=== PATIENT | female | born 1995 | race Caucasian/White ===

== ENCOUNTER 2016-07-18 12:21 | Emergency (ER) | payer OTHER ==
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
[2016-07-18] MEDS ORDERED: HYDROmorphONE/DILAUDID 1 MG/ML SYR IVP ONE (12:35)
[2016-07-18 12:37] VITALS: RESP 16; TEMP 98.1; O2SAT 96
[2016-07-18] MEDS ORDERED: methylPREDNISolone SOD SUCC 125 MG/2 ML VIAL IVP ONE (12:55)
[2016-07-18] MEDS ORDERED: FAMOTIDINE 20 MG/2 ML SDV IVP ONE (13:57)
[2016-07-18 14:20] LABS: COLOR PALE YELLOW; LEUKOCYTE ESTERASE,URINE NEGATIVE (NEGATIVE); NITRITE,URINE NEGATIVE (NEGATIVE)
[2016-07-18 14:33] VITALS: BP 116/65; PULSE 77
== END 2016-07-18 14:33 | disposition home or self-care (01) ==
LOC: EDUNIT#
DX: T14.8 Other injury of unspecified body region (principal); J45.909 Unspecified asthma, uncomplicated; F17.200 Nicotine dependence, unspecified, uncomplicated; V47.5XXA Car driver injured in collision with fixed or stationary object in traffic accident, initial encounter; Y92.410 Unspecified street and highway as the place of occurrence of the external cause; Y93.89 Activity, other specified
CPT/HCPCS: 82947-QW; 96374; J1170; J1200

== ENCOUNTER 2016-09-02 15:02 | Emergency (ER) | payer OTHER ==
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
[2016-09-02 15:51] LABS: % IMMATURE GRANULYOCYTES 0.3 % (0.0-1.1); ABSOLUTE IMMATURE GRANULOCYTES 0.02 10^3/uL (0.00-0.10); ADD DIFF? NO; ADD MORPH? NO; ADD SCAN? NO; ATYPICAL LYMPHOCYTE FLAG 10 (0-99); FRAGMENT RBC FLAG 0 (0-99); HEMATOCRIT 38.8 % (38.0-47.0); HEMOGLOBIN 13.5 g/dL (12.6-16.3); LEFT SHIFT FLG 0 (0-99); LIPEMIA HEMOLYSIS FLAG 90 (0-99); MEAN CELL HEMOGLOBIN 32.5 pg (27.9-34.1); MEAN CELL HEMOGLOBIN CONCENTR. 34.8 g/dL (32.4-36.7); MEAN CELL VOLUME 93.3 fL (81.5-99.8); MEAN PLATELET VOLUME 11.3 fL (8.7-11.7); PLATELET CLUMPS FLAG 0 (0-99); PLATELET COUNT 266 10^3/uL (150-400); RED BLOOD CELL COUNT 4.16 10^6/uL (4.18-5.33); RED CELL DISTRIBUTION WIDTH 12.8 % (11.5-15.2)
[2016-09-02 16:04] LABS: ANION GAP 13 mEq/L (8-16); CALCIUM 9.6 mg/dL (8.5-10.4); CARBON DIOXIDE 22 mEq/l (22-31); CHLORIDE 106 mEq/L (97-110); CREATININE 0.7 mg/dL (0.6-1.0); GLOMERULAR FILTRATION RATE > 60; GLUCOSE 89 mg/dL (70-100); POTASSIUM 4.2 mEq/L (3.5-5.2); SODIUM 141 mEq/L (134-144)
[2016-09-02] MEDS ORDERED: OLANZapine DISINTEGR 5 MG TAB PO ONE (21:40)
[2016-09-02] MEDS ORDERED: TAPENTADOL HCL 50 MG TAB PO ONE ×2 (21:40→22:32)
[2016-09-02] MEDS ORDERED: OLANZapine DISINTEGR 10 MG TAB PO ONE (21:40)
[2016-09-02] MEDS ORDERED: TAPENTADOL 200 MG PO ONE (22:45)
[2016-09-02] MEDS ORDERED: LIDOCAINE 2% JELLY 5 ML TUBE TP ONE (23:52)
[2016-09-02] MEDS ORDERED: NICOTINE 21 MG/24 HR PATCH TD ONE (23:52)
[2016-09-03 00:59] VITALS: BP 118/74; PULSE 71; RESP 14; TEMP 98.4; O2SAT 96
[2016-09-03] MEDS ORDERED: LIDOCAINE 5% 1 EA PATCH TD ONE (02:11)
[2016-09-03] MEDS ORDERED: LIDOCAINE 5% 1 EA PATCH TD SCH (09:00)
[2016-09-03] MEDS ORDERED: PATCH REMOVAL 1 EA PATCH TD SCH (21:00)
== END 2016-09-03 04:55 ==
LOC: EDUNIT#
DX: F28 Other psychotic disorder not due to a substance or known physiological condition (principal)
CPT/HCPCS: 80305

== ENCOUNTER 2017-01-15 23:22 | Inpatient (IN) | payer OTHER ==
--- NOTE | 2017-01-15 23:47 | EDPHY ---
General - History Smoking Status: Current every day smoker Narrative: CHIEF COMPLAINT: Suicidal attempt HISTORY OF PRESENT ILLNESS: Patient arrives by EMS accompanied by [employer]. She admits to cutting her forearms in the tops of both feet approximately 9 or 10:00 p.m.. She did so with intent to kill herself. She has been feeling increasingly depressed and feeling as if she had nothing to live for. She admits to cutting all 4 areas with a box knife. She waited 1 hour and then the bleeding stopped. She then contacted 911 due to failed attempts to do so. She complains of pain in all areas. She does not know when she last had a tetanus shot. She has had previous suicide attempt by walking out in traffic. She has diagnosis of PTSD and bipolar disorder. She does see a psychiatrist. She does take medication. She denies attempt by overdose. She does admit to intake of alcohol. No other associated complaints or modifying factors. PSYCHIATRIC DIAGNOSES: Bipolar disorder, depression, PTSD PRIOR PSYCHIATRIC EVALUATIONS: Multiple M1/DETAINER: At time of admission to the emergency department by [employer] [employer] REVIEW OF SYSTEMS: Ten systems reviewed and are negative unless otherwise noted in the HPI EXAMINATION General Appearance: Alert, no distress, crying but consolable Head: normocephalic, atraumatic Eyes: Pupils equal and round, no conjunctival pallor or injection ENT, Mouth: Mucous membranes moist. Airway patent Neck: Normal inspection, supple, non-tender Respiratory: Lungs are clear to auscultation. No wheezing, rhonchi or crackles Cardiovascular: Regular rate and rhythm. No murmur. Radial pulses are symmetric at 2+. DP pulses are symmetric at 2+. Neurological: GCS 15. A&O, nonfocal, strength is symmetric in all 4 limbs. No wrist drop. No footdrop. Skin: Warm and dry, no rash. Extensive lacerations as noted. Laceration 1.: Dorsum of the left foot. 10 cm oblique. No tendon involvement. No foreign body. Neurovascular intact distally Laceration 2.: Dorsum of the right foot. 10 cm oblique. There is full- thickness laceration of the extensor digitorum. NVI distally Laceration 3.: Volar aspect of the right forearm. 20 cm in length. No exposure of the flexor or extensor apparatus. No foreign body. Laceration 4.: Volar aspect of the left forearm, ulnar side. 18 cm in length. No exposure of the flexor extensor apparatus. No foreign body Laceration 5.: Volar aspect of the left forearm, radial side. 18 cm in length. No exposure of the flexor apparatus. Superficial laceration. Extremities: Tenderness of all 4 extremities. Range of motion is intact with exception of deficit of the right 4th toe extension. Neurovascular intact distal to the lacerations. Psychiatric: Mood and affect normal DIFFERENTIAL DIAGNOSES: Including but not limited to PTSD, bipolar disorder, depression, suicide attempt , suicidal ideation MDM: 11:45 p.m. 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 These have required extensive time for repair due to the complexity. The left forearm lacerations are unable to be repaired at this time as we have used the max dose of lidocaine and she is not tolerating the suture repair. I did discuss the case with the on-call orthopedic PA, Durga Rosado, regarding the extensor tendon injury on the right foot. He instructed me to irrigate the wound, closed the wound, treat with antibiotics and have the patient follow up closely. He requested a Paul boot. This has been ordered but due to her suicide precautions we will have to accommodate this as best as possible. He would like her to be seen in the office as soon as possible. Proceed with medical clearance and evaluation for placement. 1:20 a.m. Suicide attempt by cut to 4 extremities. She is awake, alert, conversing appropriately. She does appear to be intoxicated but exhibits no difficulty conversing. Laboratory studies are pending. The lacerations have been closed on the dorsum of both feet on the right forearm. She is not tolerating repair on the left forearm. She has had the maximum dose of lidocaine, 4.5mg/kg. There is a wet to dry dressing in place. Will continue with Ancef administration. 1:44 a.m. At this time, I have checked-out the patient to Dr. Koch. he will assume care at this time. Laboratory studies are negative, and she is medically cleared but has an Etoh level that will require evaluation in the morning. The lacerations on the left forearm will be repaired by Dr. Koch later this evening or early in the morning, as the patient has received a maximum dose of lidocaine at this time. The patient will need orthopedic follow up as soon as possible for the right foot extensor tendon injuries. PROCEDURE: Laceration repair, 1. Dorsum of the left foot Consent: Verbal Location: Dorsum of the left foot Length of repair: 10 cm Complexity: Complex Layer involvement: Single Anesthesia: Local. 1% lidocaine plain. 5.5 mL Irrigation: Extensive Debridement: None Procedure description: Following good anesthesia, the wound was copiously irrigated. Wound bed was explored and there is no foreign body noted. No tendon injury. Wound borders were approximated well with good hemostasis. Tolerated well without complication. Suture/Staple material: 5-0 Prolene. Simple running sutures #12 Wound care: Routine as discussed Suture/Staple removal: 10-14 Days PROCEDURE: Laceration repair, 2. Dorsum of the right foot Consent: Verbal Location: Dorsum of the right foot Length of repair: 10 cm, oblique with tendon injury Complexity: Complex Layer involvement: Full-thickness with extensor tendon injury Anesthesia: Local anesthesia per 1% lidocaine plain. 5.5 mL Irrigation: Extensive Debridement: None Procedure description: Following good anesthesia, the wound was copiously irrigated. Wound bed was explored and there is no foreign body noted. There was full-thickness laceration of 2 of the extensor tendons. Wound borders were approximated well with good hemostasis. Tolerated well without complication. Suture/Staple material: 5-0 Prolene. Simple running sutures #12 Wound care: Routine as discussed Suture/Staple removal: 10-14 Days PROCEDURE: Laceration repair, 3. Volar right forearm Consent: Verbal Location: Volar right forearm Length of repair: 20 cm Complexity: Complex Layer involvement: Single Anesthesia: Local per 1% lidocaine plain. 8 mL Irrigation: Extensive Debridement: None Procedure description: Following good anesthesia, the wound was copiously irrigated. Wound bed was explored and there is no foreign body noted. No tendon injury. No pulsatile bleeding. Wound borders were approximated well with good hemostasis. Tolerated well without complication. Suture/Staple material: 4-0 Prolene. #31 simple running sutures Wound care: Routine as discussed Suture/Staple removal: 10 Days (García Odonnell) 4130 final laceration repaired by me. Patient is still intoxicated. Awaiting mental health evaluation. 0700 patient signed out to Dr. García pending placement. 22:00 care assumed by me from Dr. Andrade pending placement. 22:35 the patient has been accepted to [address] [place] [address] Trejo. I have completed the EMTALA. (Harshad Koch) Procedures: Procedure: Laceration repair. Verbal consent was obtained from the patient. The 25 cm laceration on the left forearm was anesthetized in the usual fashion. The wound was irrigated, draped and explored to its base with a gloved finger. There were no deep structures involved. No tendon injury was identified. The wound was repaired with a 5-0 Ethilon running suture. The wound repair was uncomplicated. The procedure was performed by myself. (Harshad Koch) Discussion: Care assumed at 1500 with plan for operative repair of a tendon laceration followed by return to the emergency department and then psychiatric placement. 2300: signed out to the plan for psychiatric placement, she had her trip to the operating room and has return to the emergency department. (Inocente Andrade) - Objective Vital Signs: Initial Vital Signs Temperature (C) 36.6 C 01/15/17 23:51 Heart Rate 90 01/15/17 23:51 Respiratory Rate 18 01/15/17 23:51 Blood Pressure 116/80 01/15/17 23:51 O2 Sat (%) 94 01/15/17 23:51 O2 Delivery Mode Room Air Allergies/Adverse Reactions: hydrocodone Allergy (Verified 01/15/17 23:52) iodine Allergy (Verified 01/15/17 23:52) Sulfa (Sulfonamide Antibiotics) Allergy (Verified 01/15/17 23:52) NAUSEA SSRI Allergy (Uncoded 07/24/15 13:26) Home Medications: Medication Instructions Recorded ARIPiprazole [Abilify 5 mg (*)] 2.5 mg PO HS 01/15/17 buPROPion XL [Wellbutrin Xl] 150 mg PO HS 01/15/17 traZODone [traZODONE 100MG (*)] 100 mg PO HS 01/15/17 OXcarbazepine [Trileptal 300mg (*)] 300 mg PO BID 01/16/17 tiZANidine HCL [Zanaflex 2MG (*)] 2 mg PO HS 01/16/17 Laboratory Results: Laboratory Results 01/16/17 00:10 01/16/17 00:10 Medications Given: Discontinued Medications Bupivacaine HCl (Sensorcaine 0.5% Vial) Confirm Administered Dose 30 ml .ROUTE .Bosse Tools-MED ONE Stop: 01/16/17 15:30 Last Admin: 01/16/17 18:52 Dose: Not Given Cefazolin Sodium (Ancef) 1,000 mg IM ONCE ONE PRN Reason: Protocol Stop: 01/16/17 01:12 Last Admin: 01/16/17 01:48 Dose: 1,000 mg Cefazolin Sodium (Ancef) Confirm Administered Dose 1 gm .ROUTE .STK-MED ONE Stop: 01/16/17 16:46 Last Admin: 01/16/17 17:36 Dose: Not Given Cefazolin Sodium (Ancef) Confirm Administered Dose 1 gm .ROUTE .STK-MED ONE Stop: 01/16/17 16:46 Last Admin: 01/16/17 17:36 Dose: Not Given Chlorhexidine Gluconate (Hibiclens) Confirm Administered Dose 2 btl TP .STK-MED ONE Stop: 01/16/17 16:57 Last Admin: 01/16/17 17:36 Dose: Not Given Diphtheria/Tetanus/Acell Pertussis (Boostrix) 0.5 ml IM .ONCE ONE Stop: 01/16/17 01:12 Last Admin: 01/16/17 01:28 Dose: 0.5 ml Fentanyl (Sublimaze) 25 - 100 mcg IVP Q5M PRN PRN Reason: PACU, IMMEDIATE Pain control Stop: 01/16/17 18:20 Last Admin: 01/16/17 19:43 Dose: 25 mcg Cefazolin Sodium (Cefazolin Syringe) 2 gm in 20 mls @ 200 mls/hr IVP ONCALL ONE PRN Reason: Protocol Stop: 01/16/17 07:34 Last Admin: 01/16/17 16:45 Dose: 20 mls Ondansetron HCl (Zofran Odt) 4 mg PO EDNOW ONE Stop: 01/16/17 00:17 Last Admin: 01/16/17 00:16 Dose: 4 mg ED Course With Dr:: RUI Rosado Departure - Departure Clinical Impression: Severe major depression Laceration of left foot excluding toes Qualifiers: Encounter type: initial encounter Qualified Code(s): S91.312A - Laceration without foreign body, left foot, initial encounter Laceration of right foot with tendon involvement Qualifiers: Encounter type: initial encounter Qualified Code(s): S91.311A - Laceration without foreign body, right foot, initial encounter Laceration of right forearm Qualifiers: Encounter type: initial encounter Qualified Code(s): S51.811A - Laceration without foreign body of right forearm, initial encounter Laceration of left forearm Qualifiers: Encounter type: initial encounter Qualified Code(s): S51.812A - Laceration without foreign body of left forearm, initial encounter Condition: Good Referrals: Patient,NotPresent [Unknown] - As per Instructions Jessee Menjivar MD [Medical Doctor] - As per Instructions
[2017-01-16] MEDS ORDERED: ONDANSETRON DISINTEGRATING 4 MG TAB ONE (00:15)
[2017-01-16] MEDS ORDERED: ONDANSETRON DISINTEGRATING 4 MG TAB PO ONE (00:16)
[2017-01-16 00:54] LABS: % IMMATURE GRANULYOCYTES 0.8 % (0.0-1.1); ABSOLUTE IMMATURE GRANULOCYTES 0.08 10^3/uL (0.00-0.10); ADD DIFF? NO; ADD MORPH? NO; ADD SCAN? NO; ATYPICAL LYMPHOCYTE FLAG 10 (0-99); FRAGMENT RBC FLAG 0 (0-99); HEMATOCRIT 41.2 % (38.0-47.0); HEMOGLOBIN 14.1 g/dL (12.6-16.3); LEFT SHIFT FLG 0 (0-99); LIPEMIA HEMOLYSIS FLAG 90 (0-99); MEAN CELL HEMOGLOBIN 31.3 pg (27.9-34.1); MEAN CELL HEMOGLOBIN CONCENTR. 34.2 g/dL (32.4-36.7); MEAN CELL VOLUME 91.6 fL (81.5-99.8); MEAN PLATELET VOLUME 10.4 fL (8.7-11.7); PLATELET CLUMPS FLAG 10 (0-99); PLATELET COUNT 278 10^3/uL (150-400); RED CELL DISTRIBUTION WIDTH 12.6 % (11.5-15.2)
[2017-01-16 00:58] LABS: ANION GAP 15 mEq/L (8-16); CALCIUM 9.3 mg/dL (8.5-10.4); CARBON DIOXIDE 27 mEq/l (22-31); CHLORIDE 106 mEq/L (97-110); CREATININE 0.6 mg/dL (0.6-1.0); ETHANOL SERUM 277 mg/dL (0-10); GLOMERULAR FILTRATION RATE > 60; GLUCOSE 109 mg/dL (70-100); POTASSIUM 3.8 mEq/L (3.5-5.2); SODIUM 148 mEq/L (134-144)
[2017-01-16] MEDS ORDERED: TDAP ADULT 0.5 ML INJ (BOOSTRIX) IM ONE (01:11)
[2017-01-16] MEDS ORDERED: CEFAZOLIN 330 MG/ML IM SYRINGE IM ONE (01:11)
[2017-01-16] MEDS ORDERED: ceFAZolin 2 GM/SWFI 2 GM/20 ML SYR IVP ONE (07:29)
--- NOTE | 2017-01-16 09:40 | GHP ---
[f rep st] HISTORY AND PHYSICAL DATE OF ADMISSION: 01/15/2017 CHIEF COMPLAINT: Suicide attempt, multiple lacerations on bilateral forearms, bilateral feet. HISTORY OF PRESENT ILLNESS: The patient is a 21-year-old female who initially presented to the [facility] Emergency Department on 01/15/2017, accompanied by the [place] [employer]. At that time, the patient admitted to cutting her forearms, as well as the dorsum of her bilateral feet approximately at 9 or 10 p.m. that evening. She reports that she did so with the intent to kill herself. The patient, at that time, noted that she had been feeling increasingly depressed, and feeling as though she had nothing to live for, per ED report. The patient made these lacerations in all 4 areas with a box knife, which she reports was clean. The patient then waited approximately 1 hour until she noticed the bleeding stopped, at which time she contacted EMS. At time of presentation to the ED, the patient reported pain in all 4 areas. She was initially evaluated by García Odonnell PA-C, as well as Dr. Jessee Koch , and was placed on an M1 hold. Laceration repairs were then performed on the dorsum of the bilateral feet, as well as the volar aspect of the right and left forearm. Five lacerations were repaired in total. During the laceration repair of the dorsum of the right foot, a full-thickness laceration of the extensor digitorum tendon was noted. Orthopedics was consulted. Today, the patient remains in an M1 hold and is currently intoxicated. She is able to give a brief history of the events, which seem to fit with the above description. She reports that she has had no significant pain at this time, as well as no new onset numbness or tingling. Her right foot is in a Jara boot , though she notes that she has not been up and ambulating. All 5 laceration repairs appear to be well dressed, and the patient states that she has been leaving her dressings intact as instructed. She has no additional concerns or complaints at this time. PAST MEDICAL HISTORY: The patient reports a limited past medical history due to intoxication status; however, combined with chart review, it reveals significant for Josephine-Danlos syndrome, Sjogren syndrome, PTSD, bipolar disorder , asthma, and endometriosis. PAST SURGICAL HISTORY: Again, review of past surgical history is slightly limited due to patient's intoxication status. However, chart review indicates an appendectomy in the past. The patient reports no adverse reaction to anesthesia. MEDICATIONS: Please see medication reconciliation for complete list, but this is significant for Zyprexa, Nucynta, tizanidine, Abilify, Wellbutrin, and trazodone. ALLERGIES: Again, review of allergies slightly limited due to patient's current status. However, the patient reports an allergy in the past to hydrocodone, iodine, sulfa (which has caused nausea in the past), and selective serotonin reuptake inhibitors. SOCIAL HISTORY: The patient again reports a limited social history, but upon chart review, it appears the patient lives with her mother, and has had multiple psychiatric evaluations, as well as multiple SI events. Per chart review, it appears the patient is a former smoker and currently uses alcohol. Per patient, she denies any recreational drug use, however review of chart reveals at least cocaine use in the past. PHYSICAL EXAMINATION: GENERAL: NAD, slightly somnolent, willing to answer questions. HEENT: NC/AT, PERRLA. Ears and nares are patent and without discharge. OP is clear. No cervical LAD noted. NECK: Normal to inspection, NTTP. RESPIRATORY: Chest rise appears abnormal, no labored breathing noted. No increased WOB. CARDIOVASCULAR: RRR. Chest is normal in appearance. ABDOMEN: Soft, NT/ND. EXTREMITIES: Examination of the bilateral forearms reveals lacerations on the volar aspect of the left forearm, on the ulnar side, approximately 18 inches in length. This is appropriately closed with simple sutures. There is also a radial-sided laceration, approximately the same length, again closed with some sutures. Examination of the right forearm reveals an approximately 20 cm laceration, closed with simple sutures. Bilateral forearm exams reveal no surrounding erythema, discharge or induration. The patient demonstrates good flexion/extension of the wrist, hand and fingers. The patient is intact to light touch sensation distally. Capillary refill is less than 2 seconds in the finger pulps. Examination of the left foot reveals a 10 cm laceration, oblique in nature, on the dorsal aspect of the left foot. The patient flexes and extends all toes 1 through 5 WNL. The patient is able to plantar flex/ dorsiflex with mild discomfort, but no weakness noted. Laceration was closed with simple sutures, no surrounding erythema, discharge or induration. Examination of the right foot reveals an intact Jara boot. This is partially removed, revealing intact dressings, which were removed, revealing a 10 cm oblique laceration, closed with simple sutures. The patient has decreased extensor ability of the toes. The patient is intact distally to light touch sensation. Capillary refill is less than 2 seconds. Dorsalis pedis and posterior tibialis pulses are intact and equal compared bilaterally. Posterior calves are NTTP, no palpable vascular cords, DNVI, BLE. SKIN: Please see above dictation concerning bilateral forearms and bilateral feet. No additional rashes or lesions are noted. PSYCH: Pt is A&Ox3, slightly somnolent, cooperative with exam. ASSESSMENT: Suicidal attempt, multiple lacerations including bilateral forearms and dorsum of the foot. Extensor digitorum laceration of the right foot (ICD10: S92.921A) is also noted. PLAN: This patient's case was discussed with Dr. Menjivar today. At this time, given the patient's current disposition status, he has recommended surgical repair. We have discussed the treatment options with the patient today, who has relayed that she would like to proceed with this surgical repair. We have tentatively scheduled a repair of tendon laceration of the right foot for later this afternoon. Brief recuperative timeline was discussed with the patient today, as well as the possibility of cast immobilization after this repair. The patient is awaiting a mental health evaluation and subsequent discharge disposition to a mental health facility. We have discussed the possibility of this cast immobilization with Mental Health, who feels that this would be amenable to those facility's policies. At this time, the patient will remain n.p.o. Due to her intoxication status, a signed informed consent was not obtained today, will be obtained preoperatively by Dr. Menjivar. All the patient' s questions were answered today, and her concerns addressed. She has relayed her understanding of the current care plan and education presented today, and appears pleased with the care she has received today. It has been my pleasure to assist in the care of this patient. /[id number]/MODL MTDD
[2017-01-16] MEDS ORDERED: CEFAZOLIN 2 GM/DEXTROSE/100 ML BAG IV ONE (15:38)
--- NOTE | 2017-01-16 16:20 | PDANEPAE ---
ANE History of Present Illness 21 year old female w/ self inflicted injuries to OR for repair of right foot extensor tendon injury. ANE Past Medical History - Cardiovascular History Hx Hypertension: No Hx Arrhythmias: No Hx Chest Pain: No Hx Coronary Artery / Peripheral Vascular Disease: No Hx CHF / Valvular Disease: No Hx Palpitations: No - Pulmonary History Hx COPD: No Hx Asthma/Reactive Airway Disease: No Hx Recent Upper Respiratory Infection: No Hx Oxygen in Use at Home: No Hx Sleep Apnea: No - Endocrine History Hx Diabetes: No Hypothyroid: No Hyperthyroid: No Obesity: no - Renal History Hx Renal Disorders: No - Liver History Hx Hepatic Disorders: No - Neurological & Psychiatric Hx Hx Neurological and Psychiatric Disorders: Yes Neurological / Psychiatric History Comment: Patient on "hold" in ED due to self inflicted injuries. - Cancer History Hx Cancer: No - Congenital Disorder History Hx Congenital Disorders: No - GI History GERD: no Hx Gastrointestinal Disorders: No - Chronic Pain History Chronic Pain: Yes ANE Review of Systems Review of systems is: negative Review of Systems: - Exercise capacity Exercise capacity: >=4 METS ANE Patient History - Allergies Allergies/Adverse Reactions: hydrocodone Allergy (Verified 01/15/17 23:52) iodine Allergy (Verified 01/15/17 23:52) Sulfa (Sulfonamide Antibiotics) Allergy (Verified 01/15/17 23:52) NAUSEA SSRI Allergy (Uncoded 07/24/15 13:26) - Home Medications Home medications: home medication list seen and reviewed Home Medications: ARIPiprazole [Abilify 5 mg (*)] 2.5 mg PO HS 01/15/17 [Last Taken 01/14/17] buPROPion XL [Wellbutrin Xl] 150 mg PO HS 01/15/17 [Last Taken 01/15/17] traZODone [traZODONE 100MG (*)] 100 mg PO HS 01/15/17 [Last Taken 01/14/17] OXcarbazepine [Trileptal 300mg (*)] 300 mg PO BID 01/16/17 [Last Taken 01/15/17 09:00] tiZANidine HCL [Zanaflex 2MG (*)] 2 mg PO HS 01/16/17 [Last Taken 01/14/17] - NPO status NPO Status: no food or drink >8 hours NPO Since - Liquids (Date): 01/16/17 NPO Since - Liquids (Time): 00:00 NPO Since - Solids (Date): 01/16/17 NPO Since - Solids (Time): 00:00 - Anes Hx Anes Hx: no prior problems - Smoking Hx Smoking Status: Current every day smoker - Family Anes Hx Family Anes Hx: neg - N/A ANE Labs/Vital Signs - Labs Result Diagrams: 01/16/17 00:10 01/16/17 00:10 - Vital Signs Blood Pressure: 108/71 Heart Rate: 93 Respiratory Rate: 16 O2 Sat (%): 94 Height: 170.18 cm Weight: 61.235 kg ANE Physical Exam - Airway Mallampati Score: Class 2 Mouth exam: normal dental/mouth exam - Pulmonary Pulmonary: no respiratory distress - Cardiovascular Cardiovascular: regular rate and rhythym - ASA Status ASA Status: III ANE Anesthesia Plan Anesthesia Plan: general endotracheal anesthesia Total IV Anesthesia: No
[2017-01-16] MEDS ORDERED: fentaNYL 100 MCG/2 ML INJ ONE ×3 (16:32→19:00)
[2017-01-16] MEDS ORDERED: PROPOFOL 200 MG/20 ML VIAL ONE ×2 (16:32→17:30)
[2017-01-16] MEDS ORDERED: ceFAZolin 1 GM VIAL ONE ×2 (16:45)
[2017-01-16] MEDS ORDERED: ONDANSETRON 4 MG/2 ML VIAL ONE (16:53)
[2017-01-16] MEDS ORDERED: ROCURONIUM 50 MG/5 ML VIAL ONE (16:53)
[2017-01-16] MEDS ORDERED: DEXAMETHASONE 4 MG/ML VIAL ONE (16:53)
[2017-01-16] MEDS ORDERED: CHLORHEXIDINE GLUC HIBICLENS 118 ML BTL TP ONE (16:56)
[2017-01-16] MEDS ORDERED: NALOXONE HCL 0.4 MG/ML INJ IVP PRN (17:20)
[2017-01-16] MEDS ORDERED: ONDANSETRON 4 MG/2 ML VIAL IVP PRN (17:20)
[2017-01-16] MEDS ORDERED: OXYCODONE/APAP 5/325 TAB PO PRN (17:20)
[2017-01-16] MEDS ORDERED: LR 500 ML IV PRN (17:20)
[2017-01-16] MEDS: BUPIVACAINE 0.5% 30 ML SDV ONE ×2 (17:32→18:52)
[2017-01-16] MEDS ORDERED: SUGAMMADEX SODIUM 200 MG/2 ML VIAL IVP ONE (18:09)
--- NOTE | 2017-01-16 18:56 | POSTANESTH ---
Post Anesthetic Evaluation Cardiovascular Status: Normal, Stable, Similar to Pre-Op Cond Respiratory Status: Normal, Stable, Similar to Pre-op Cond. Level of Consciousness/Mental Status: Can Participate in Eval, Alert and Oriented Pain Control: Adequate, Prn Tx Ordered Nausea/Vomiting Control: Adequate, Prn Tx Ordered Complications Possibly Related to Anesthesia: None Noted (Patient is alert and oriented. Appropriately interacting with care team at time of this documentation. Once through Phase II of recovery, patient will be transported back to Emergency Department where patient is on a medical hold due to self- inflicted injuries.)
[2017-01-16] MEDS: fentaNYL 100 MCG/2 ML INJ IVP PRN ×2 (19:11→19:43)
[2017-01-16] MEDS ORDERED: OXcarbazepine 300 MG TAB PO SCH (21:00)
[2017-01-16] MEDS ORDERED: traZODone 100 MG TAB PO SCH (21:00)
[2017-01-16] MEDS ORDERED: buPROPion XL 150 MG TAB PO SCH (21:00)
[2017-01-16] MEDS ORDERED: ARIPiprazole 5 MG TAB PO SCH (21:00)
[2017-01-16] MEDS ORDERED: tiZANidine HCL 2 MG TAB PO SCH (21:00)
--- NOTE | 2017-01-16 22:39 | GOP ---
[f rep st] OPERATIVE REPORT DATE OF OPERATION: 01/16/2017 SURGEON: Jessee Menjivar MD ANESTHESIA: General. PREOPERATIVE DIAGNOSIS: 1. Laceration to extensor digitorum tendons to 3rd and 4th toes. 2. Laceration to dorsal sensory branch, peroneal nerve. 3. Dehiscence of forearm laceration, right upper extremity, status post previous repair in emergency room. POSTOPERATIVE DIAGNOSIS: PROCEDURE PERFORMED: 1. Exploration and repair, extensor tendons, right foot, x2 (to 3rd and 4th toes). 2. Repair of dorsal sensory branch, peroneal nerve. 3. Closure of right forearm laceration. FINDINGS: DESCRIPTION OF PROCEDURE: The patient was taken to the operating room, administered general anesthes ia, placed in supine position. The wounds in both upper extremities were explored. The left one was intact. The right one had dehisced secondary to a broken stitch. This was a running suture. The l eft foot wound was intact and well closed. The right foot wound was intact. Sutures were removed fr om the right foot after the right lower extremity was prepped and draped in normal sterile fashion. Esmarch exsanguination was performed followed by elevation of thigh cuff to 275 mmHg pressure. The e xtensor tendons were dissected out proximally and distally. Two tendons were lacerated. These 2 ten dons were repaired in succession. There was a core suture of 4-0 FiberWire. There was a 2nd running suture of 6-0 nylon in each tendon. The digital nerve was then dissected out. Its proximal ends we re cleaned up of soft tissue around the epineurium. The epineural repair was done with three 9-0 sut ures, bringing the nerve ends in to reapproximation, completing urography. The wound was then irriga sharan with copious amounts of normal saline. The closure was performed with a 5-0 nylon suture. The f orearm wound was then addressed. It was re-cleansed with saline solution. The previous running sutu re was loosened up and then tied proximally. The wound was then closed with interrupted 5-0 nylon beasley tures. Sterile compression dressing applied. The patient tolerated the procedure well. A short-leg cast was applied to the right lower extremity. She was transferred back to recovery in stable condi tion. No operative complications. COMPLICATIONS: None. /[id number]/MODL
[2017-01-16] MEDS ORDERED: MAG HYDROX/AL HYDROX/SIMETH 30 ML UDCUP PO PRN ×2 (22:53)
[2017-01-16] MEDS ORDERED: chlordiazePOXIDE 25 MG CAP PO PRN (22:53)
[2017-01-16] MEDS ORDERED: PROMETHAZINE HCL 25 MG TAB PO PRN (22:53)
[2017-01-16] MEDS ORDERED: THIAMINE HCL 100 MG TAB (ONCE) PO ONE (22:53)
[2017-01-16] MEDS ORDERED: NICOTINE POLACRILEX 2 MG GUM B PRN (22:53)
[2017-01-16] MEDS ORDERED: PROMETHAZINE HCL 25 MG SUPPR PR PRN (22:53)
[2017-01-16] MEDS ORDERED: MAGNESIUM HYDROXIDE 30 ML UDCUP PO PRN ×2 (22:53)
[2017-01-16] MEDS ORDERED: OXYCODONE/APAP 5/325 TAB PO ONE (23:28)
[2017-01-17] MEDS: OXYCODONE/APAP 5/325 TAB PO PRN ×3 (06:10→18:23)
[2017-01-17] MEDS: CEPHALEXIN 500 MG CAP PO SCH ×3 (06:26→17:37)
[2017-01-17] MEDS: MULTIVITAMINS 1 EACH TAB PO SCH (08:36)
[2017-01-17] MEDS: IBUPROFEN 200 MG TAB PO PRN ×2 (08:36→17:35)
[2017-01-17] MEDS: THIAMINE HCL 100 MG TAB (DAILY X 3) PO SCH (08:36)
[2017-01-17] MEDS: FOLIC ACID 1 MG TAB PO SCH (08:36)
[2017-01-17] MEDS ORDERED: ONDANSETRON DISINTEGRATING 4 MG TAB PO PRN (12:58)
[2017-01-17] MEDS ORDERED: MELATONIN 3 MG TAB PO PRN (13:04)
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
[2017-01-17] MEDS: OXcarbazepine 300 MG TAB PO SCH (20:17)
[2017-01-17] MEDS: ARIPiprazole 5 MG TAB PO SCH (20:18)
[2017-01-17] MEDS: tiZANidine HCL 2 MG TAB PO SCH (20:18)
[2017-01-17] MEDS: traZODone 100 MG TAB PO PRN (20:24)
[2017-01-18] MEDS: CEPHALEXIN 500 MG CAP PO SCH (01:19)
[2017-01-18] MEDS: OXYCODONE/APAP 5/325 TAB PO PRN ×4 (08:23→22:15)
[2017-01-18] MEDS: IBUPROFEN 200 MG TAB PO PRN ×2 (08:24→13:52)
[2017-01-18] MEDS: FOLIC ACID 1 MG TAB PO SCH (08:24)
[2017-01-18] MEDS: OXcarbazepine 300 MG TAB PO SCH ×2 (08:24→22:15)
[2017-01-18] MEDS: THIAMINE HCL 100 MG TAB (DAILY X 3) PO SCH (08:25)
[2017-01-18] MEDS: MULTIVITAMINS 1 EACH TAB PO SCH (08:25)
[2017-01-18] MEDS: buPROPion XL 150 MG TAB PO SCH (08:51)
--- NOTE | 2017-01-18 12:34 | SOAPPROG ---
SOAP Progress Note Assessment/Plan: Assessment: 21 yo female with h/o MDD, cannabis dep, hallucinogen dep, alcohol dep, h/o opioid dep, borderline personality disorder, was admitted after cutting bilateral forearms and bilateral LE. She severed tendon and nerve in left foot that required surgery. She is no longer endorsing SI, but feels very helpless about her future. Plan: 01/18/17 12:29 1. CCM - patient no longer having SI, and no intent or plan to harm herself. 2. Continue with Percocet for pain, but recommended to start tapering dose in 1- 2 days d/t prior h/o opioid dependence and other substance use disorders. 3. MD left message for [facility] therapist, with update on patient's condition. 4. Chrisconnie having staff meeting to discuss patient's continued participation in their program and recommendations for living situation. MOC would like patient to go to residential tx facility, but patient says her MOC is leaving the decision "up to me." 5. Patient to sign in voluntary. Subjective: Met with patient and d/w staff. Patient has been staying in bed since admission , except to use bathroom. She is eating < 50% of meals. She denies any N/V today , has not needed any PRN Zofran. She does report pain is 7/10, but says she gets good relief with Percocet. Patient denies any suicidal thoughts yesterday and today, she denies any intent or plan to harm herself. Her [facility] therapist, Letha, visited yesterday and told RN that [facility] team would be holding staff meeting on Thursday to discuss patient's living situation. MO reports she would like patient to go to residential tx facility, however, patient claims MO told her she wanted patient to "make the final decision." Patient has no idea what to do, she is still feeling overwhelmed by "life" and her responsibilities, including trying to go back to [employer] next semester. Patient is extremely immature and has very limited coping skills. She needs much more intensive and specific therapeutic services, such as DBT group and individual therapy to help her manage stressors and improve her decision making skills. Objective: Vital Signs Temp Pulse Resp BP Pulse Ox 37.0 C 97 14 97/55 L 93 01/17/17 16:00 01/17/17 19:03 01/17/17 16:00 01/17/17 19:03 01/17/17 16:00 MSE: Quiet, lethargic, lying in bed. Affect: Flat Mood: "OK" TP: Linear, goal- directed TC: Denies any thoughts, plan or intent to hurt herself, no psychotic sxs Insight/Judgment: Poor - Time Spent With Patient Time Spent With Patient: 25" - Pending Discharge Pending Discharge Within 24 Hours: No Pending Discharge Within 48 Hours: No ICD10 Worksheet Patient Problems: Problems Problem Status Onset Alcohol use disorder, severe, dependence Acute Borderline personality disorder Acute Cannabis use disorder, severe, dependence Acute Hallucinogen dependence Acute Laceration of left foot excluding toes Acute Laceration of left forearm Acute Laceration of right foot with tendon involvement Acute Laceration of right forearm Acute Opioid use disorder, severe, in sustained remission, dependence Acute Severe major depression Acute Convulsion, non-epileptic Acute - ICD10 Problem Qualifiers (1) Cannabis use disorder, severe, dependence (2) Alcohol use disorder, severe, dependence (3) Hallucinogen dependence (4) Opioid use disorder, severe, in sustained remission, dependence (5) Borderline personality disorder
[2017-01-18] MEDS: ARIPiprazole 5 MG TAB PO SCH (22:14)
[2017-01-18] MEDS: tiZANidine HCL 2 MG TAB PO SCH (22:15)
[2017-01-19] MEDS: IBUPROFEN 200 MG TAB PO PRN ×2 (08:38→16:10)
[2017-01-19] MEDS: buPROPion XL 150 MG TAB PO SCH (08:38)
[2017-01-19] MEDS: MULTIVITAMINS 1 EACH TAB PO SCH (08:39)
[2017-01-19] MEDS: THIAMINE HCL 100 MG TAB (DAILY X 3) PO SCH (08:39)
[2017-01-19] MEDS: OXYCODONE/APAP 5/325 TAB PO PRN (08:39)
[2017-01-19] MEDS: OXcarbazepine 300 MG TAB PO SCH ×2 (08:40→20:37)
[2017-01-19] MEDS: FOLIC ACID 1 MG TAB PO SCH (08:40)
[2017-01-19] MEDS ORDERED: ASPIRIN EC 325 MG TAB PO SCH (09:00)
[2017-01-19] MEDS ORDERED: OXYCODONE/APAP 5/325 TAB PO PRN (11:14)
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
[2017-01-19] MEDS ORDERED: ACETAMINOPHEN 325 MG TAB PO PRN (15:16)
[2017-01-19] MEDS: ASPIRIN 325 MG TAB PO SCH (16:09)
[2017-01-19] MEDS: ARIPiprazole 5 MG TAB PO SCH (20:37)
[2017-01-19] MEDS: tiZANidine HCL 2 MG TAB PO SCH (20:37)
[2017-01-19] MEDS: oxyCODONE IR 5 MG TAB PO PRN (20:40)
[2017-01-19] MEDS: traZODone 100 MG TAB PO PRN (20:41)
[2017-01-20] MEDS: MULTIVITAMINS 1 EACH TAB PO SCH (08:25)
[2017-01-20] MEDS: IBUPROFEN 200 MG TAB PO PRN ×2 (08:25→20:18)
[2017-01-20] MEDS: ASPIRIN 325 MG TAB PO SCH (08:25)
[2017-01-20] MEDS: buPROPion XL 150 MG TAB PO SCH (08:26)
[2017-01-20] MEDS: OXcarbazepine 300 MG TAB PO SCH ×2 (08:26→20:19)
[2017-01-20] MEDS: FOLIC ACID 1 MG TAB PO SCH (08:26)
[2017-01-20] MEDS: oxyCODONE IR 5 MG TAB PO PRN ×2 (10:04→17:33)
[2017-01-20] MEDS ORDERED: tiZANidine HCL 2 MG TAB PO PRN (14:45)
--- NOTE | 2017-01-20 14:55 | SOAPPROG ---
SOAP Progress Note Assessment/Plan: Assessment: Bipolar Disorder type II depressed Personality Disorder - borderline traits PTSD Cannabis Use Disorder, severe Possible alcohol use disorder History of LSD/hallucinogen, and opioid use disorders History of 'non-epileptiform seizures' per Neurology/EEG report; history of one concussion age 18; Head CT 07/2016 WNL, Brain MRI 2013 WNL History of Josephine-Danlos syndrome and possible Sjogren syndrome per patient report, no current symptoms and outside records don't support these diagnoses Multiple self-inflicted lacerations on all four extremities with numerous sutures, S/P right foot tendon (3rd, 4th toe) and dorsal peroneal nerve repair Constipation Patient had serious suicide attempt while intoxicated with alcohol (BAL 277) with numerous self-inflicted lacerations Patient reports history of recurrent depressive symptoms and probable hypomanic episodes since age 15, along with PTSD and Borderline PD symptoms. Patient had multiple psychiatric hospitalizations earlier this year. Patient admitted on M-1 hold, now voluntary. Patient has a flat affect but has small improvement in ability to discuss symptoms and is now participating in individual and group therapy. Patient not interested in [place] trial or referral for ECT after review of possible side effects but willing to try increased doses of Abilify and Wellbutrin recommended by outpatient psychiatrist. Patient is unable to bear weight on right foot for 4-6 weeks, but her apartment is up a flight of stairs; currently in wheelchair. Plan: PT consult to clarify what assistive device patient can use to get out of a wheelchair Wound/bandage care; patient reportedly needs sutures removed 10-14 days after surgery Continue Oxycodone 5mg BID PRN pain; plan to discontinue tomorrow Continue Ibuprofen 400mg [id number] PRN pain and Tylenol Change Tizanidine 2mg QHS PRN muscle spasm, may be causing low BP with PRN Trazodone 100mg for insomnia Education about bipolar disorder and borderline PD and PTSD recovery; reviewed patient strengths and supports Discussed motivation for sobriety. Patient not interested in residential substance abuse treatment. Wellbutrin XL 300mg PO QAM (increased today 01/20) Abilify 5mg QHS (increased last night 01/19) Continue Trileptal 300mg BID Monitor behavior, coping skills, hopelessness; suicide and fall precautions MOM 30cc now for constipation; start Senokot BID Monitor low BP; reviewed with patient importance of monitoring for pre-syncope symptoms Plan family meeting or phone conference tomorrow with mother to discuss level of assistance patient will need when discharged Explore residential mental health programs 01/20/17 15:12 Subjective: "Don't care about anything, I just want to lie down." Patient reports low mood and low energy and lack of interest in anything. Reviewed medication changes made by Dr. Hollingsworth since starting treatment 3-4 months ago. Patient reports she requested Zyprexa be switched to Abilify due to past benefit as a teenager when taking with Trileptal. Endorses intrusive thoughts of past trauma. Reports tolerating increased Abilify dose last night and Wellbutrin this AM without side effects. Reports she doesn't care if she lives or dies after discharge and is unsure her mother can care for her or assist her in getting surgery follow up next week. Reports she is willing to go into a residential MH program in the future with focus on DBT and PTSD recovery. Reports not wanting to try [place] or ECT for severe depression at this time. Agrees to continue medication and participate in individual and group therapy on the unit. Reports no BM for 4 days. Denies dizziness or lightheadedness despite low BP 'I have always had low blood pressure.' Objective: Vital Signs Temp Pulse Resp BP Pulse Ox 36.6 C 66 12 92/57 L 96 01/20/17 06:15 01/20/17 06:15 01/20/17 06:15 01/20/17 06:15 01/20/17 06:15 Tired appearing WF, flat affect, limited eye contact. Mood 'don't care about anything.' Affect restricted/sad. Thoughts briefly organized with a poverty of detail/content. Reports feeling hopeless, doesn't care if she lives or dies. Denies plan to harm self on unit. Denies AH or paranoia. Limited insight, impaired judgment. Staff report patient slept 9 hours overnight and went to group yesterday PM and this AM. Patient met with individual therapist this AM, able to identify supports (mother , step-father, counselor) but unable to identify personal strengths or reasons for living or coping skills. Patient was able to identify thoughts and emotions related to negative mood episodes and positive mood episodes. Reviewed [facility] records [facility] [place] Isaias Orozco: Patient inpatient twice [facility] around August 2016, diagnosed Bipolar Disorder , PTSD, substance use disorders, possible personality disorder; prescribed Zyprexa 20mg and Depakote 1500mg. Notes indicate patient was referred to [facility] or [facility] in October 20162016 labs B12, TSH, LFTs, Lipids all WNL Head CT WNL July 2016 Brain MRI WNL August 2013 Patient had positive JUS in 2013 but multiple other autoimmune disease tests WNL - Time Spent With Patient Time Spent With Patient: 20 minutes - Pending Discharge Pending Discharge Within 24 Hours: No Pending Discharge Within 48 Hours: No ICD10 Worksheet Patient Problems: Problems Problem Status Onset Alcohol use disorder, severe, dependence Acute Bipolar II disorder Acute Borderline personality disorder Acute Cannabis use disorder, severe, dependence Acute Hallucinogen dependence Acute Laceration of left foot excluding toes Acute Laceration of left forearm Acute Laceration of right foot with tendon involvement Acute Laceration of right forearm Acute Opioid use disorder, severe, in sustained remission, dependence Acute Convulsion, non-epileptic Acute
[2017-01-20] MEDS: traZODone 100 MG TAB PO PRN (20:18)
[2017-01-20] MEDS: ARIPiprazole 5 MG TAB PO SCH (20:19)
[2017-01-21] MEDS: SENNOSIDES 1 TAB PO SCH ×2 (00:33→09:23)
[2017-01-21] MEDS: IBUPROFEN 200 MG TAB PO PRN (09:23)
[2017-01-21] MEDS: ASPIRIN 325 MG TAB PO SCH (09:23)
[2017-01-21] MEDS: buPROPion XL 150 MG TAB PO SCH (09:23)
[2017-01-21] MEDS: FOLIC ACID 1 MG TAB PO SCH (09:23)
[2017-01-21] MEDS: MULTIVITAMINS 1 EACH TAB PO SCH (09:23)
[2017-01-21] MEDS: OXcarbazepine 300 MG TAB PO SCH ×2 (09:23→20:52)
[2017-01-21] MEDS ORDERED: SENNOSIDES 1 TAB PO PRN (11:50)
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
[2017-01-21] MEDS: oxyCODONE IR 5 MG TAB PO PRN ×2 (12:11→18:38)
[2017-01-21] MEDS: ACETAMINOPHEN 325 MG TAB PO SCH ×2 (17:01→20:52)
[2017-01-21] MEDS: traZODone 100 MG TAB PO SCH (20:52)
[2017-01-22] MEDS: ARIPiprazole 5 MG TAB PO SCH (08:26)
[2017-01-22] MEDS: ACETAMINOPHEN 325 MG TAB PO SCH ×3 (08:26→20:32)
[2017-01-22] MEDS: MULTIVITAMINS 1 EACH TAB PO SCH (08:26)
[2017-01-22] MEDS: buPROPion XL 150 MG TAB PO SCH (08:26)
[2017-01-22] MEDS: ASPIRIN 325 MG TAB PO SCH (08:26)
[2017-01-22] MEDS: FOLIC ACID 1 MG TAB PO SCH (08:26)
[2017-01-22] MEDS: OXcarbazepine 300 MG TAB PO SCH ×2 (08:26→20:33)
--- NOTE | 2017-01-22 13:01 | SOAPPROG ---
SOAP Progress Note Assessment/Plan: Assessment: Bipolar Disorder type II depressed Borderline PD PTSD Cannabis Use Disorder, severe Alcohol Use Disorder, moderate History of LSD/hallucinogen, and opioid use disorders Multiple self-inflicted lacerations on all four extremities with numerous sutures, S/P right foot tendon (3rd, 4th toe) and dorsal peroneal nerve repair Per PT: 50% weight bearing on RLE, use walker or crutches for 4-6 weeks Patient has surgery follow up 01/27 or 01/28 for cast removal, suture removal, and re-assessment of right foot Patient had serious suicide attempt while intoxicated with alcohol (BAL 277) with numerous/extensive self-inflicted lacerations on all four extremities. Patient had multiple psychiatric hospitalizations earlier this year for mixed manic/depressive symptoms and substance abuse. Patient admitted on M-1 hold, now voluntary. Patient has a flat affect but has small improvement in ability to discuss symptoms and is now participating in individual and group therapy. Patient continues to report hopelessness and no clear reason to live or any coping skills to use if having suicidal ideation. Patient not interested in [place] trial or referral for ECT so far, but willing to try increased doses of Abilify and Wellbutrin recommended by outpatient psychiatrist. Plan: Discussed [place] as alternative medication if not taking NSAIDS, patient has handout to review Discontinue PRN oxycodone Schedule Tylenol 650mg TID Continue Ibuprofen 400mg [id number] PRN pain and Tizanidine 2mg HS PRN muscle spasm Continue Wellbutrin XL 300mg PO QAM Change Abilify 5mg QAM Continue Trileptal 300mg BID Continue Trazodone 100mg QHS PRN MOM, senokot Monitor behavior, coping skills, hopelessness; SP-03/23minute self-harm precautions residence life coordinator and mother exploring residential placement after surgery follow up next week 01/22/17 13:03 01/22/17 13:09 Subjective: "Don't care" Reports feeling sad and down 'all the time.' Unable to name reasons for living or any goals for the future. Unable to identify any coping skills to use if not in the hospital. Reports regret that she attempted suicide but unable to explain why. Reports willingness to go into a residential MH program after discharge. Didn't read handout on [place] as alternative medication 'not sure I want to take anything new.' Objective: Vital Signs Temp Pulse Resp BP Pulse Ox 36.6 C 74 14 97/52 L 96 01/22/17 06:54 01/22/17 06:54 01/22/17 06:54 01/22/17 06:54 01/22/17 06:54 Alert WF walks slowly with walker. Flat affect, fair eye contact. Speech soft few words. Mood 'don't care.' Affect restricted dysphoric, tearful briefly. Thoughts briefly organized with poverty of detail. Denies SI but reports no reasons to live and unable to name any coping skills. Memory limited information. Insight poor judgment impaired. Staff report patient slept 9 hours and able to attend group, minimal speech, walking with walker, compliant with medications. - Time Spent With Patient Time Spent With Patient: 30 minutes - Pending Discharge Pending Discharge Within 24 Hours: No Pending Discharge Within 48 Hours: No ICD10 Worksheet Patient Problems: Problems Problem Status Onset Alcohol use disorder, severe, dependence Acute Bipolar II disorder Acute Borderline personality disorder Acute Cannabis use disorder, severe, dependence Acute Hallucinogen dependence Acute Laceration of left foot excluding toes Acute Laceration of left forearm Acute Laceration of right foot with tendon involvement Acute Laceration of right forearm Acute Opioid use disorder, severe, in sustained remission, dependence Acute Convulsion, non-epileptic Acute
[2017-01-22] MEDS ORDERED: MAGNESIUM HYDROXIDE 30 ML UDCUP PO ONE (13:10)
[2017-01-22] MEDS: traZODone 100 MG TAB PO SCH (20:33)
[2017-01-23] MEDS: ASPIRIN 325 MG TAB PO SCH (08:57)
[2017-01-23] MEDS: ARIPiprazole 5 MG TAB PO SCH (08:57)
[2017-01-23] MEDS: OXcarbazepine 300 MG TAB PO SCH ×2 (08:57→22:08)
[2017-01-23] MEDS: buPROPion XL 150 MG TAB PO SCH (08:57)
[2017-01-23] MEDS: MULTIVITAMINS 1 EACH TAB PO SCH (08:57)
[2017-01-23] MEDS: ACETAMINOPHEN 325 MG TAB PO SCH ×3 (08:57→22:08)
[2017-01-23] MEDS: FOLIC ACID 1 MG TAB PO SCH (08:57)
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
[2017-01-23] MEDS: LITHIUM CARBONATE 300 MG TAB PO SCH ×2 (14:23→22:08)
[2017-01-23] MEDS: IBUPROFEN 200 MG TAB PO PRN (14:25)
[2017-01-23] MEDS ORDERED: OXcarbazepine 300 MG TAB PO SCH (21:00)
[2017-01-23] MEDS: traZODone 100 MG TAB PO SCH (22:08)
[2017-01-24] MEDS: OXcarbazepine 300 MG TAB PO SCH ×2 (08:35→21:22)
[2017-01-24] MEDS: buPROPion XL 150 MG TAB PO SCH (08:36)
[2017-01-24] MEDS: MULTIVITAMINS 1 EACH TAB PO SCH (08:36)
[2017-01-24] MEDS: ASPIRIN 325 MG TAB PO SCH (08:36)
[2017-01-24] MEDS: FOLIC ACID 1 MG TAB PO SCH (08:36)
[2017-01-24] MEDS: LITHIUM CARBONATE 300 MG TAB PO SCH ×2 (08:36→21:24)
[2017-01-24] MEDS: ACETAMINOPHEN 325 MG TAB PO SCH ×3 (08:36→21:25)
--- NOTE | 2017-01-24 13:39 | SOAPPROG ---
SOAP Progress Note Assessment/Plan: Assessment: 21 yo female with h/o MDD, cannabis dep, hallucinogen dep, alcohol dep, h/o opioid dep, borderline personality disorder, was admitted after cutting bilateral forearms and bilateral LE. She severed tendon and nerve in left foot that required surgery. She is no longer endorsing SI, but feels very helpless about her future. Per Dr. Lr's notes: Plan: Patient given DBT packet to review over weekend. Reviewed goals of DBT regarding emotion regulation and reduction of self-harm. Discussed [place] as alternative medication if not taking NSAIDS regularly, patient reviewed NATTY handout on [place]; reviewed risk of defects, miscarriage, no breast feeding, and drug interaction with SSRIs, NSAIDs, and diuretic BP medications Start low dose [place] 150mg BID. Check lithium level and BMP on 01/26/17. Recheck TSH on 01/26/17 (TSH 09/2016 was WNL) Continue Tylenol 650mg TID Change Ibuprofen 400mg once daily only PRN for pain. Patient on ASA 81mg daily until cast removed. 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 Continue plan of care noted above by Dr. Lr. Patient working on DBT handout. 2. CCM - patient denies any SE's or complaints since starting [place]. 3. Patient reports no foot pain today. Subjective: Met with patient, reviewed chart and d/w staff. Patient says her mood is "better " today. She is smiling and participating in group therapy. She denies any foot pain today, and says she has had no SE's from new medication, lithium. She denies any SI/HI, states she does not feel depressed or sad today. Objective: Vital Signs Temp Pulse Resp BP Pulse Ox 36.6 C 75 12 102/62 96 01/24/17 06:17 01/24/17 06:17 01/24/17 06:17 01/24/17 06:17 01/24/17 06:17 MSE: Pleasant, cooperative, smiling in group. Affect: Euthymic, brighter than other days Mood: "Good" TP: Linear TC: Denies any SI/HI, no AH/VH Insight/ Judgment: Poor - Time Spent With Patient Time Spent With Patient: 20" - Pending Discharge Pending Discharge Within 24 Hours: No Pending Discharge Within 48 Hours: No ICD10 Worksheet Patient Problems: Problems Problem Status Onset Alcohol use disorder, severe, dependence Acute Bipolar II disorder Acute Borderline personality disorder Acute Cannabis use disorder, severe, dependence Acute Laceration of left foot excluding toes Acute Laceration of left forearm Acute Laceration of right foot with tendon involvement Acute Laceration of right forearm Acute Opioid use disorder, severe, in sustained remission, dependence Acute Posttraumatic stress disorder Acute Convulsion, non-epileptic Acute - ICD10 Problem Qualifiers (1) Cannabis use disorder, severe, dependence (2) Alcohol use disorder, severe, dependence (3) Hallucinogen dependence (4) Opioid use disorder, severe, in sustained remission, dependence (5) Borderline personality disorder
[2017-01-24] MEDS: traZODone 100 MG TAB PO SCH (21:23)
[2017-01-25] MEDS: OXcarbazepine 300 MG TAB PO SCH ×2 (09:17→21:11)
[2017-01-25] MEDS: MULTIVITAMINS 1 EACH TAB PO SCH (09:17)
[2017-01-25] MEDS: FOLIC ACID 1 MG TAB PO SCH (09:18)
[2017-01-25] MEDS: buPROPion XL 150 MG TAB PO SCH (09:18)
[2017-01-25] MEDS: ACETAMINOPHEN 325 MG TAB PO SCH ×3 (09:18→21:11)
[2017-01-25] MEDS: LITHIUM CARBONATE 300 MG TAB PO SCH ×2 (09:18→21:10)
[2017-01-25] MEDS: ASPIRIN 325 MG TAB PO SCH ×3 (09:43→13:22)
--- NOTE | 2017-01-25 13:14 | SOAPPROG ---
SOAP Progress Note Assessment/Plan: Assessment: 21 yo female with h/o MDD, cannabis dep, hallucinogen dep, alcohol dep, h/o opioid dep, borderline personality disorder, was admitted after cutting bilateral forearms and bilateral LE. She severed tendon and nerve in left foot that required surgery. She is no longer endorsing SI, but feels very helpless about her future. Per Dr. Lr's notes: Plan: Patient given DBT packet to review over weekend. Reviewed goals of DBT regarding emotion regulation and reduction of self-harm. Discussed [place] as alternative medication if not taking NSAIDS regularly, patient reviewed NATTY handout on [employer] [place]; reviewed risk of defects, miscarriage, no breast feeding, and drug interaction with SSRIs, NSAIDs, and diuretic BP medications Start low dose [place] 150mg BID. Check lithium level and BMP on 01/26/17. Recheck TSH on 01/26/17 (TSH 09/2016 was WNL) Continue Tylenol 650mg TID Change Ibuprofen 400mg once daily only PRN for pain. Patient on ASA 81mg daily until cast removed. 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 Continue plan of care noted above by Dr. Lr. Patient working on DBT handout. 2. CCM - patient denies any SE's or complaints since starting [place]. 3. Patient reports no foot pain today. 01/25/17 13:10 1. Patient tolerating med changes well. She reports new med regimen is working "much better." 2. Li, TSH, BMP tomorrow 3. CCM - patient shows signs of improvement Subjective: Met with patient, reviewed chart and d/w staff. Patient says she is feeling "perkier" and "more cheerful" the last 2 days. She admits she was "down and out " most of the past week, but has felt more social and enjoyed groups and milieu activities during past couple days. This is evident by her brighter affect and more positive attitude. She says, "I'm really sensitive to meds" and believes she responds to new meds "right away." She thinks she can already tell the [employer] [place] is working to improve her mood and make her feel "better." She denies any SI/HI. Objective: Vital Signs Temp Pulse Resp BP Pulse Ox 36.6 C 82 12 94/56 L 97 01/25/17 06:14 01/25/17 06:14 01/25/17 06:14 01/25/17 06:14 01/25/17 06:14 MSE: Pleasant, cheerful, cooperative. Affect: Brighter, "perkier" Mood: "Cheerful" TP: Linear, goal-directed TC: Denies any thoughts, plan or intent to hurt herself or anyone else Insight/Judgment: Improved - Time Spent With Patient Time Spent With Patient: 20" - Pending Discharge Pending Discharge Within 24 Hours: No Pending Discharge Within 48 Hours: No ICD10 Worksheet Patient Problems: Problems Problem Status Onset Alcohol use disorder, severe, dependence Acute Bipolar II disorder Acute Borderline personality disorder Acute Cannabis use disorder, severe, dependence Acute Laceration of left foot excluding toes Acute Laceration of left forearm Acute Laceration of right foot with tendon involvement Acute Laceration of right forearm Acute Opioid use disorder, severe, in sustained remission, dependence Acute Posttraumatic stress disorder Acute Convulsion, non-epileptic Acute - ICD10 Problem Qualifiers (1) Cannabis use disorder, severe, dependence (2) Alcohol use disorder, severe, dependence (3) Hallucinogen dependence (4) Opioid use disorder, severe, in sustained remission, dependence (5) Borderline personality disorder
[2017-01-25] MEDS: traZODone 100 MG TAB PO SCH (21:10)
[2017-01-26] MEDS: IBUPROFEN 200 MG TAB PO PRN ×2 (03:48→08:34)
[2017-01-26] MEDS: OXcarbazepine 300 MG TAB PO SCH (08:33)
[2017-01-26] MEDS: buPROPion XL 150 MG TAB PO SCH (08:33)
[2017-01-26] MEDS: ACETAMINOPHEN 325 MG TAB PO SCH ×3 (08:35→20:44)
[2017-01-26] MEDS: ASPIRIN 325 MG TAB PO SCH (08:35)
[2017-01-26] MEDS: MULTIVITAMINS 1 EACH TAB PO SCH (08:35)
[2017-01-26] MEDS: FOLIC ACID 1 MG TAB PO SCH (08:35)
[2017-01-26] MEDS ORDERED: hydrOXYzine HCL 25 MG TAB PO PRN (09:04)
[2017-01-26] MEDS: LITHIUM CARBONATE 300 MG TAB PO SCH ×2 (09:17→20:44)
[2017-01-26 10:59] LABS: ANION GAP 16 mEq/L (8-16); CALCIUM 9.7 mg/dL (8.5-10.4); CARBON DIOXIDE 23 mEq/l (22-31); CHLORIDE 103 mEq/L (97-110); CREATININE 0.8 mg/dL (0.6-1.0); GLOMERULAR FILTRATION RATE > 60; GLUCOSE 74 mg/dL (70-100); POTASSIUM 4.4 mEq/L (3.5-5.2); SODIUM 142 mEq/L (134-144)
[2017-01-26 11:01] LABS: LITHIUM < 0.2 mEq/L (0.6-1.2)
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
[2017-01-26] MEDS: traZODone 100 MG TAB PO SCH (20:44)
[2017-01-27] MEDS: ACETAMINOPHEN 325 MG TAB PO SCH ×3 (08:40→23:45)
[2017-01-27] MEDS: FOLIC ACID 1 MG TAB PO SCH (08:40)
[2017-01-27] MEDS: ASPIRIN 325 MG TAB PO SCH (08:40)
[2017-01-27] MEDS: buPROPion XL 150 MG TAB PO SCH (08:40)
[2017-01-27] MEDS: LITHIUM CARBONATE 300 MG TAB PO SCH (08:41)
[2017-01-27] MEDS: MULTIVITAMINS 1 EACH TAB PO SCH (08:41)
[2017-01-27] MEDS: OXcarbazepine 300 MG TAB PO SCH (08:42)
[2017-01-27] MEDS: IBUPROFEN 200 MG TAB PO PRN (12:31)
[2017-01-27] MEDS ORDERED: LITHIUM CARBONATE 300 MG CAP PO ONE (13:21)
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
--- NOTE | 2017-01-27 17:14 | SOAPPROG ---
SOAP Progress Note Assessment/Plan: Assessment: POD#11 Right foot Repair of extensor tendons, repair of dorsal sensory branch, peroneal nerve. Closure of Left foot laceration and bilateral UE lacerations. Plan: Sutures were removed of the Bilateral feet and bilateral upper extremity lacerations and steri strips were placed. Weight bearing as tolerated right lower extremity in [place]. [place] will need to be worn for another 4 weeks from today and then the patient can gradually progress out of boot as tolerated with pain as a guide. After back in a normal shoe at 6 weeks post op patient can progressive into activities as tolerated. Okay to stop the aspirin at this point. Follow up with Dr. Menjivar in another 4 weeks from today if the patient is still residing in [place]. 01/27/ 17:19 Subjective: 21 year old female that is POD#11 Right foot Repair of extensor tendons, repair of dorsal sensory branch, peroneal nerve. Closure of Left foot laceration and bilateral UE lacerations. Patient reports that her 4th and 5th toes in her right foot are still numb. Patient states that she is still having pain in her B/L UE's and B/L LE's but the pain is improving. Overall the patient is stable. Objective: Vital Signs Temp Pulse Resp BP Pulse Ox 36.5 C 69 14 99/58 L 97 01/27/ 06:17 01/27/17 06:17 01/27/17 06:17 01/27/17 06:17 01/27/17 06:17 Laboratory Results 01/26/17 09:53 Physical exam of the Bilateral Upper Extremities: lacerations are healing well: there is no erythema, no active drainage. Sutures were removed and steri strips were placed. A soft dry dressing was applied. Normal sensation to light touch in the B/L UE's, Distal pulse present in the B/L UE's. Exam of the Bilateral lower extremities: Incision/lacerations are healing well: there is no erythema, no active drainage. Sutures were removed and steri strips were placed. Patient does have decreased sensation in her right 4th and 5th toes. She is able to flex and extend all 5 toes. Normals sensation to light touch in the LLE. Distal pulse present in the B/L LE's. ICD10 Worksheet Patient Problems: Problems Problem Status Onset Alcohol use disorder, severe, dependence Acute Bipolar II disorder Acute Borderline personality disorder Acute Cannabis use disorder, severe, dependence Acute Laceration of left foot excluding toes Acute Laceration of left forearm Acute Laceration of right foot with tendon involvement Acute Laceration of right forearm Acute Opioid use disorder, severe, in sustained remission, dependence Acute Posttraumatic stress disorder Acute Convulsion, non-epileptic Acute
[2017-01-27] MEDS: LITHIUM CARBONATE ER 450 MG TAB PO SCH (23:44)
[2017-01-27] MEDS: traZODone 100 MG TAB PO SCH (23:45)
[2017-01-28] MEDS: OXcarbazepine 300 MG TAB PO SCH (09:00)
[2017-01-28] MEDS: ACETAMINOPHEN 325 MG TAB PO SCH ×3 (09:01→20:23)
[2017-01-28] MEDS: ASPIRIN 325 MG TAB PO SCH (09:01)
[2017-01-28] MEDS: buPROPion XL 150 MG TAB PO SCH (09:01)
[2017-01-28] MEDS: LITHIUM CARBONATE ER 450 MG TAB PO SCH ×2 (09:01→20:23)
[2017-01-28] MEDS: FOLIC ACID 1 MG TAB PO SCH (09:02)
[2017-01-28] MEDS: MULTIVITAMINS 1 EACH TAB PO SCH (09:02)
[2017-01-28] MEDS ORDERED: traZODone 50 MG TAB PO PRN (12:08)
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
[2017-01-28] MEDS: traZODone 100 MG TAB PO SCH (20:23)
[2017-01-29] MEDS: ACETAMINOPHEN 325 MG TAB PO SCH ×3 (08:33→21:29)
[2017-01-29] MEDS: LITHIUM CARBONATE ER 450 MG TAB PO SCH ×2 (08:33→17:41)
[2017-01-29] MEDS: buPROPion XL 150 MG TAB PO SCH (08:33)
[2017-01-29] MEDS: MULTIVITAMINS 1 EACH TAB PO SCH (08:33)
[2017-01-29] MEDS: OXcarbazepine 300 MG TAB PO SCH (08:34)
[2017-01-29] MEDS: FOLIC ACID 1 MG TAB PO SCH (08:34)
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
[2017-01-29] MEDS: traZODone 100 MG TAB PO SCH (21:29)
[2017-01-30] MEDS: buPROPion XL 150 MG TAB PO SCH (09:19)
[2017-01-30] MEDS: ACETAMINOPHEN 325 MG TAB PO SCH ×3 (09:20→21:51)
[2017-01-30] MEDS: LITHIUM CARBONATE ER 450 MG TAB PO SCH ×2 (09:20→21:51)
[2017-01-30 10:51] LABS: ANION GAP 13 mEq/L (8-16); CALCIUM 9.8 mg/dL (8.5-10.4); CARBON DIOXIDE 27 mEq/l (22-31); CHLORIDE 102 mEq/L (97-110); CREATININE 0.7 mg/dL (0.6-1.0); GLOMERULAR FILTRATION RATE > 60; GLUCOSE 81 mg/dL (70-100); LITHIUM 0.4 mEq/L (0.6-1.2); POTASSIUM 4.5 mEq/L (3.5-5.2); SODIUM 142 mEq/L (134-144)
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
[2017-01-30] MEDS: traZODone 100 MG TAB PO SCH (21:51)
[2017-01-31] MEDS: LITHIUM CARBONATE ER 450 MG TAB PO SCH ×2 (08:54→22:08)
[2017-01-31] MEDS: ACETAMINOPHEN 325 MG TAB PO SCH ×3 (08:55→22:08)
[2017-01-31] MEDS: buPROPion XL 150 MG TAB PO SCH (08:55)
--- NOTE | 2017-01-31 12:30 | SOAPPROG ---
SOAP Progress Note Assessment/Plan: Assessment: 21 yo female with h/o MDD, cannabis dep, hallucinogen dep, alcohol dep, h/o opioid dep, borderline personality disorder, was admitted after cutting bilateral forearms and bilateral LE. She severed tendon and nerve in left foot that required surgery. She is no longer endorsing SI, but feels very helpless about her future. Per Dr. Lr's note on 01/30/17: Spoke to Kayla [facility] include [facility] beds at the [facility]. They report they require up front $5400 payment but will bill patients insurance and then reimburse patient/mother for cost of program. Reviewed with patient. Addendum entered and electronically signed by Ron Lr MD 01/30/17 13:26: Met with patient. Reviewed [facility] treatment program with patient. Discussed that this program has residential treatment for substance abuse; also psychiatrist and individual therapists on staff. Patient declined referral to this program and reports that she prefers to go to [facility] program. 01/31/17 12:24 1. Patient continues to show improvement. She no longer feels depressed and denies any SI/HI. 2. Patient prefers to stay on current med regimen. She declined increase in [place] despite a low level (0.4 on 01/30/17). 3. Patient has declined residential SA tx (see above). Her MOC is deciding whether she can afford [facility]. Subjective: Met with patient, reviewed chart and d/w staff. Patient states she is feeling "better" since cast came off this week and sutures were removed. She is wearing boot on R foot, and has steri-stripes on both arms. Patient says her mood has been "pretty good" the past week, but she is starting to worry about "where I go " after discharge. She declined [facility] program for substance abuse, and her MOC may not be able to afford the upfront cost of [facility]. Patient says this turn of events leave her feeling "flat." She admits [place] seemed to be "helping," but declined Dr. Lr's recommendation to increase dose since level is only 0.4. Patient denies any thoughts, plan or intent to hurt herself or others. Objective: Vital Signs Temp Pulse Resp BP Pulse Ox 36.6 C 78 14 78/44 L 98 01/31/17 08:00 01/31/17 08:00 01/31/17 08:00 01/31/17 08:00 01/31/17 08:00 Laboratory Results 01/30/17 09:15 MSE: Affect: Euthymic Mood: "Better" "Good" and "Flat" TP: Linear, goal- directed TC: Denies any SI/HI, no AH/VH Insight/Judgment: Poor - Time Spent With Patient Time Spent With Patient: 20" - Pending Discharge Pending Discharge Within 24 Hours: No Pending Discharge Within 48 Hours: No ICD10 Worksheet Patient Problems: Problems Problem Status Onset Alcohol use disorder, severe, dependence Acute Bipolar II disorder Acute Borderline personality disorder Acute Cannabis use disorder, severe, dependence Acute Laceration of left foot excluding toes Acute Laceration of left forearm Acute Laceration of right foot with tendon involvement Acute Laceration of right forearm Acute Opioid use disorder, severe, in sustained remission, dependence Acute Posttraumatic stress disorder Acute Convulsion, non-epileptic Acute - ICD10 Problem Qualifiers (1) Cannabis use disorder, severe, dependence (2) Alcohol use disorder, severe, dependence (3) Hallucinogen dependence (4) Opioid use disorder, severe, in sustained remission, dependence (5) Borderline personality disorder
[2017-01-31] MEDS: IBUPROFEN 200 MG TAB PO PRN (13:32)
[2017-01-31] MEDS: traZODone 100 MG TAB PO SCH (22:08)
[2017-02-01] MEDS: LITHIUM CARBONATE ER 450 MG TAB PO SCH ×2 (08:40→21:48)
[2017-02-01] MEDS: ACETAMINOPHEN 325 MG TAB PO SCH ×3 (08:40→21:48)
[2017-02-01] MEDS: buPROPion XL 150 MG TAB PO SCH (08:40)
--- NOTE | 2017-02-01 11:54 | SOAPPROG ---
SOAP Progress Note Assessment/Plan: Assessment: 21 yo female with h/o MDD, cannabis dep, hallucinogen dep, alcohol dep, h/o opioid dep, borderline personality disorder, was admitted after cutting bilateral forearms and bilateral LE. She severed tendon and nerve in left foot that required surgery. She is no longer endorsing SI, but feels very helpless about her future. Per Dr. Lr's note on 01/30/17: Spoke to [facility]. They report they require up front $5400 payment but will bill patients insurance and then reimburse patient/mother for cost of program. Reviewed with patient. Addendum entered and electronically signed by Ron Lr MD 01/30/17 13:26: Met with patient. Reviewed [facility] treatment program with patient. Discussed that this program has residential treatment for substance abuse; also psychiatrist and individual therapists on staff. Patient declined referral to this program and reports that she prefers to go to [facility] residential program. 01/31/17 12:24 1. Patient continues to show improvement. She no longer feels depressed and denies any SI/HI. 2. Patient prefers to stay on current med regimen. She declined increase in [place] despite a low level (0.4 on 01/30/17). 3. Patient has declined residential SA tx (see above). Her MOC is deciding whether she can afford [facility]. 02/01/17 11:51 1. Patient presents with brighter affect today. 2. Reports her MOC is speaking with staff at [facility] to make a final decision whether patient will go there. 3. CCM- patient feels "stable" and shows significant improvement since admission Subjective: Met with patient, reviewed chart and d/w staff. Patient presents with brighter affect, cheerful, smiling. She says she feels "better" today. Patient reports she is looking forward to leaving hospital and going to residential treatment. She is still not sure where she will go. She says her MOC is talking to staff at [facility] tomorrow, after that patient says she and her mom will "discuss " and "make a decision." She denies any SI/HI. Objective: Vital Signs Temp Pulse Resp BP Pulse Ox 36.7 C 82 14 94/51 L 96 02/01/17 06:33 02/01/17 06:33 02/01/17 06:33 02/01/17 06:33 02/01/17 06:33 Laboratory Results 01/30/17 09:15 MSE: Pleasant, cooperative, wearing ortho boot on right foot, bandages on both forearms. Affect: Euthymic, brighter today Mood: "Better" TP: Linear, goal- directed TC: No SI/HI, no AH/VH Insight/Judgment: Fair - Time Spent With Patient Time Spent With Patient: 20" - Pending Discharge Pending Discharge Within 24 Hours: No Pending Discharge Within 48 Hours: No ICD10 Worksheet Patient Problems: Problems Problem Status Onset Alcohol use disorder, severe, dependence Acute Bipolar II disorder Acute Borderline personality disorder Acute Cannabis use disorder, severe, dependence Acute Laceration of left foot excluding toes Acute Laceration of left forearm Acute Laceration of right foot with tendon involvement Acute Laceration of right forearm Acute Opioid use disorder, severe, in sustained remission, dependence Acute Posttraumatic stress disorder Acute Convulsion, non-epileptic Acute - ICD10 Problem Qualifiers (1) Cannabis use disorder, severe, dependence (2) Alcohol use disorder, severe, dependence (3) Hallucinogen dependence (4) Opioid use disorder, severe, in sustained remission, dependence (5) Borderline personality disorder
[2017-02-01] MEDS: traZODone 100 MG TAB PO SCH (21:48)
[2017-02-02] MEDS: LITHIUM CARBONATE ER 450 MG TAB PO SCH ×2 (08:18→21:51)
[2017-02-02] MEDS: buPROPion XL 150 MG TAB PO SCH (08:18)
[2017-02-02] MEDS: ACETAMINOPHEN 325 MG TAB PO SCH ×3 (08:18→21:56)
[2017-02-02] MEDS ORDERED: CEPACOL LOZENGE PO ONE (08:46)
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
[2017-02-02] MEDS: CEPACOL LOZENGE PO PRN ×3 (11:20→21:44)
[2017-02-02] MEDS ORDERED: GUAIFENESIN/DM 10 ML UDCUP PO PRN (13:12)
--- NOTE | 2017-02-02 13:15 | SOAPPROG ---
SOAP Progress Note Assessment/Plan: Assessment: Upper respiratory infection, likely viral. Not consistent with streptococcal pharyngitis. Prescribed guaifenesin/dextromethorphan p.r.n. cough after checking with psychiatrist regarding whether she has any it in issues. Expect spontaneous resolution over several days to a week or 2. 02/02/17 13:14 Subjective: Asked to see patient regarding sore throat. She reports sore throat; also has coughing and sneezing. No fevers or chills. No dyspnea. Objective: Vital Signs Temp Pulse Resp BP Pulse Ox 35.8 C L 80 14 89/50 L 96 02/02/17 06:00 02/02/17 06:00 02/02/17 06:00 02/02/17 06:00 02/02/17 06:00 Laboratory Results 01/30/17 09:15 Physical Exam - Physical Exam General Appearance: WD/WN, alert, no apparent distress EENT: pharyngeal erythema (No exudates.), other (No posterior oropharyngeal mucus.) Neck: No lymphadenopathy (R), No lymphadenopathy (L) Respiratory: normal breath sounds, No crackles, No rhonchi, No wheezing ICD10 Worksheet Patient Problems: Problems Problem Status Onset Alcohol use disorder, severe, dependence Acute Bipolar II disorder Acute Borderline personality disorder Acute Cannabis use disorder, severe, dependence Acute Laceration of left foot excluding toes Acute Laceration of left forearm Acute Laceration of right foot with tendon involvement Acute Laceration of right forearm Acute Opioid use disorder, severe, in sustained remission, dependence Acute Posttraumatic stress disorder Acute Convulsion, non-epileptic Acute
[2017-02-02] MEDS: traZODone 100 MG TAB PO SCH (21:52)
[2017-02-03 06:31] VITALS: RESP 12
[2017-02-03] MEDS: buPROPion XL 150 MG TAB PO SCH (08:30)
[2017-02-03] MEDS: LITHIUM CARBONATE ER 450 MG TAB PO SCH ×2 (08:30→21:37)
[2017-02-03] MEDS: ACETAMINOPHEN 325 MG TAB PO SCH (10:44)
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
[2017-02-03] MEDS: CEPACOL LOZENGE PO PRN (15:55)
[2017-02-03] MEDS: ACETAMINOPHEN 325 MG TAB PO PRN ×2 (15:55→21:42)
[2017-02-03] MEDS: traZODone 100 MG TAB PO SCH (21:37)
[2017-02-04 06:26] VITALS: BP 77/42; PULSE 76; TEMP 97.7; O2SAT 98
[2017-02-04] MEDS: LITHIUM CARBONATE ER 450 MG TAB PO SCH (08:45)
[2017-02-04] MEDS: buPROPion XL 150 MG TAB PO SCH (08:45)
[2017-02-04] MEDS: CEPACOL LOZENGE PO PRN (09:51)
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
--- NOTE | 2017-02-04 15:35 | SOAPPROG ---
KITTY Progress Note Assessment/Plan: Assessment: Subjective: Spoke to [facility] pharmacy in [place] [phone]. Clarified that patient should take Wellbutrin XL 300mg daily, not 150mg. Objective: Vital Signs Temp Pulse Resp BP Pulse Ox 36.5 C 76 12 77/42 L 98 02/04/17 06:00 02/04/17 06:00 02/04/17 06:00 02/04/17 06:00 02/04/17 06:00 Laboratory Results 01/30/17 09:15 ICD10 Worksheet Patient Problems: Problems Problem Status Onset Alcohol use disorder, severe, dependence Acute Bipolar II disorder Acute Borderline personality disorder Acute Cannabis use disorder, severe, dependence Acute Convulsion, non-epileptic Acute Laceration of left foot excluding toes Acute Laceration of left forearm Acute Laceration of right foot with tendon involvement Acute Laceration of right forearm Acute Opioid use disorder, severe, in sustained remission, dependence Acute Posttraumatic stress disorder Acute
== END 2017-02-04 11:38 | disposition home or self-care (01) | DRG 501 ==
LOC: EDUNIT# → FSGY 01-16 16:15 → UNDOADMOB 01-16 18:45 → BBEH 01-17 01:25
PROVIDERS: ADMIT Psychiatry & Neurology Psychiatry
PROC: 0HQDXZZ Repair Right Lower Arm Skin, External Approach (ICD-10-PCS; 2017-01-15)
PROC: 0HQNXZZ Repair Left Foot Skin, External Approach (ICD-10-PCS; 2017-01-15)
PROC: 0HQEXZZ Repair Left Lower Arm Skin, External Approach (ICD-10-PCS; 2017-01-15)
PROC: 0JQQ3ZZ Repair Right Foot Subcutaneous Tissue and Fascia, Percutaneous Approach (ICD-10-PCS; 2017-01-15)
PROC: 0LQV0ZZ Repair Right Foot Tendon, Open Approach (ICD-10-PCS; principal; 2017-01-16 16:00)
PROC: 01QH0ZZ Repair Peroneal Nerve, Open Approach (ICD-10-PCS; principal; 2017-01-16 16:00)
DX: S96.121A Laceration of muscle and tendon of long extensor muscle of toe at ankle and foot level, right foot, initial encounter (principal); F31.81 Bipolar II disorder; S94.21XA Injury of deep peroneal nerve at ankle and foot level, right leg, initial encounter; S91.311A Laceration without foreign body, right foot, initial encounter; S91.312A Laceration without foreign body, left foot, initial encounter; S51.811A Laceration without foreign body of right forearm, initial encounter; S51.812A Laceration without foreign body of left forearm, initial encounter; X78.1XXA Intentional self-harm by knife, initial encounter; F10.129 Alcohol abuse with intoxication, unspecified; Y90.8 Blood alcohol level of 240 mg/100 ml or more; F60.3 Borderline personality disorder; F43.10 Post-traumatic stress disorder, unspecified
CPT/HCPCS: 80305; 96374; 97116-GP; 97161-GP; 97530-GP; G0480; J0690; J1100; J2405; J2704; J3010; L4386

== ENCOUNTER → 2018-06-29 | Outpatient (CLI) | payer OTHER | LOC: FIMAGING 10:10 | DX: Z34.02 Encounter for supervision of normal first pregnancy, second trimester (principal) ==

== ENCOUNTER → 2018-08-18 | Outpatient (CLI) | payer OTHER | LOC: FCP 13:51 ==